=== PATIENT | male | born 1990 | race Caucasian/White ===

== ENCOUNTER 2021-01-04 23:38 | Emergency (ER) | payer SELFPAY ==
[~2021-01-04] VITALS: Ht 180.3 cm; Wt 127.0 kg
[2021-01-04 23:55] VITALS: BP 176/103
[2021-01-05 00:06] VITALS: BP 176/103
[2021-01-05] MEDS ORDERED: SULF-59 PO (01:46)
== END 2021-01-05 01:53 | disposition home or self-care (01) ==
LOC: MED 23:38
DX: S40.851A Superficial foreign body of right upper arm, initial encounter (principal); F11.10 Opioid abuse, uncomplicated; X58.XXXA Exposure to other specified factors, initial encounter; Y93.89 Activity, other specified; Y92.89 Other specified places as the place of occurrence of the external cause; Y99.8 Other external cause status
CPT/HCPCS: 73070; 99284